=== PATIENT | male | born 1990 | race African-American/Black ===

== ENCOUNTER 2017-12-21 10:38 | Emergency (ER) | payer MEDICAID ==
[~2017-12-21] VITALS: Ht 188 cm; Wt 75.1 kg
[2017-12-21 10:48] VITALS: BP 128/79
== END 2017-12-21 11:19 | disposition home or self-care (01) ==
LOC: ED 10:38
DX: L42 Pityriasis rosea (principal); J45.909 Unspecified asthma, uncomplicated; E11.9 Type 2 diabetes mellitus without complications